=== PATIENT | male | born 1955 | race Caucasian/White ===

== ENCOUNTER 2020-06-05 16:19 | Outpatient (RCR) | payer MEDICARE, SELFPAY ==
[2014-04-11 14:33] VITALS: BMI 39.7
[2020-06-05] MEDS: COVID-19 VACC, MRNA(PFIZER)/PF 30 MCG/0.3 ML SYRINGE IM (17:23)
[2020-06-26] MEDS: COVID-19 VACC, MRNA(PFIZER)/PF 30 MCG/0.3 ML SYRINGE IM (17:01)
== END 2020-09-02 23:59 ==
LOC: IMMUN 16:19
PROVIDERS: PCP Internal Medicine; Visit Provider Family Medicine
DX: Z23 Encounter for immunization (principal)
CPT/HCPCS: 0001A; 0002A; 91300

== ENCOUNTER 2021-08-09 17:48 | Emergency (ER) | payer BC, SELFPAY ==
[2021-08-09 17:49] VITALS: BP 131/103; PULSE 81; RESP 18; TEMP 37.4; O2SAT 97; BMI 37.3
[2021-08-09 18:31] LABS: Absolute Lymphocyte Count 3.29 X10^3/uL (0.83-4.51); Absolute Neutrophil Count 10.5 X10^3/uL (2.0-7.7); Basophil# 0.03 X10^3/uL; Basophil% 0.2 % (0-1); Eosinophil# 0.12 X10^3/uL; Eosinophils% 0.8 % (0-5); Hematocrit 42.9 % (40-54); Hemoglobin 14.3 g/dL (13.0-16.5); Lymphocyte # 3.29 X10^3/ul (0.83-4.51); Lymphocyte % 21.9 % (19-41); Mean Corp Hgb Conc 33.3 g/dL (32-36); Mean Corpuscular Hgb 29.5 pg (27.0-32.0); Mean Corpuscular Volume 88.6 fL (80-94); Mean Platelet Vol. 10.8 fl (6.2-12.0); Monocyte# 1.08 X10^3/uL; Monocyte% 7.2 % (0-10); NRBC Flagged by Analyzer 0 % (0-5); Neutrophil # 10.45 X10^3/uL (2.7-7.7); Neutrophil % 69.5 % (47-70); Platelet Count 240 K/mm3 (150-450); RBC Distribution Width CV 12.6 % (11.6-14.6); RBC Distribution Width SD 41.1 fl (35.1-43.9); Red Blood Count 4.84 M/mm3 (4.6-6.2)
[2021-08-09 18:39] LABS: Anion Gap 7 (5-15); BUN 18 mg/dL (7-18); BUN/Creat Ratio 17.8 RATIO (10-20); Calcium,Total 9.1 mg/dL (8.5-10.1); Chloride 103 mmol/L (98-107); Creatinine, Serum 1.01 mg/dL (0.70-1.30); EST Glomerular Filtration Rate 79 mL/min (>60); Est Glom Filt Rate - Afr Amer 96 mL/min (>60); Estimated Creatinine Clearance 76.29 ml/min; Glucose 113 mg/dL (74-106); Potassium 4.1 mmol/L (3.5-5.1); Sodium Level 135 mmol/L (136-145)
--- NOTE | 2021-08-09 18:43 | CT_ITS ---
STUDY: CT ABDOMEN AND PELVIS WITH CONTRAST REASON FOR EXAM: Male, 66 years old. PAIN RADIATION DOSAGE (If Supplied By Facility): CTDIvol = ( 24.53 ) mGy, DLP = ( 1766.46 ) mGycm TECHNIQUE: Transaxial images were obtained from the dome of the diaphragm to the symphysis pubis without oral contrast. IV 100mL Isovue-370 was administered. Sagittal and coronal images were reconstructed. Individualized dose optimization techniques were used for this CT. COMPARISON: None. FINDINGS: Right lower lobe calcified granulomas The visualized portions of the heart are within normal limits. Normal liver. Normal gallbladder and extrahepatic biliary system. Granulomatous calcifications in the spleen. Normal pancreas. Normal bilateral adrenal glands. Normal right kidney. Normal left kidney. Normal visualized stomach. Normal small intestine. Mild diverticulosis of the colon. There is inflammation at the proximal sigmoid colon likely due to diverticulitis. No adjacent free air or drainable collection. The appendix is visualized and appears normal. Calcified abdominal aorta. Normal inferior vena cava. Normal retroperitoneum. Normal urinary bladder. Normal abdominal wall. There is a left hip prosthesis in place.. CT/Abdomen/Pelvis W IV Cont ONLY IMPRESSION: Proximal sigmoid diverticulitis. Electronically Signed: Ravi Randall DO at 20:00 EDT Reading Location ID and State: [facility] / [place] Tel [phone], Service support ,
[2021-08-09 18:44] LABS: Mucous, Urine 0 SEEN /hpf (<or=2+); White Blood Cells 0 SEEN /hpf (0-5)
--- NOTE | 2021-08-09 18:44 | EDS_ITS ---
HPI HPI - GI History of Present Illness Chief Complaint: Constipation Narrative Narrative: Patient presents with abdominal pain and bloating. He endorses decreased flatulence. He states he usually has a bowel movement every day. He only had a small bowel movement this morning. He ate 2 pieces of pizza and had a big bowl of food, and has not not had a bowel movement. He complains of abdominal distention and diffuse pain. Past surgical history includes hernia repair. He denies any nausea or vomiting. No fever or chills. No other symptoms. PFSH PFSH Home Medications albuterol sulfate [Ventolin HFA] 1 puff INHALATION Q4H PRN PRN 04/11/14 [History Last Taken 04/11/14 02:00] metformin 1,000 mg PO BIDCM 04/11/14 [History Last Taken 04/11/14 02:00] ciprofloxacin HCl 500 mg PO BID #20 tab 08/09/21 [Rx Last Taken Unknown] glipizide 20 mg PO DAILY 08/09/21 [History Last Taken Unknown] hydrocodone-acetaminophen 1 tab PO Q6H PRN 3 Days #12 tab 08/09/21 [Rx Last Ta armida Unknown] lisinopril 10 mg PO DAILY 08/09/21 [History Last Taken Unknown] metronidazole 500 mg PO TID #30 tab 08/09/21 [Rx Last Taken Unknown] Allergy/AdvReac Type Severity Reaction Status Date / Time Penicillins Allergy Anaphylaxis Verified 08/09/21 17:50 pentolinium Allergy Rash Verified 08/09/21 17:50 Surgical History Hx of hernia repair Social History Smoking Status: Current some day smoker tobacco type: cigarettes ROS ROS ED ROS Narrative Constitutional: No fever, no chills. HEENT: No sore throat. No neck pain. No loss of vision. No rhinorrhea. Cardiovascular: No chest pain. No palpitations. No pedal edema. Respiratory: No cough, no shortness of breath. Abdominal: Diffuse abdominal pain. No nausea. No vomiting. Abdominal bloating and distention. No bowel movement since this morning. Genitourinary: No dysuria. No hematuria. Musculoskeletal: No myalgias. No arthralgias. Neurologic: No headaches. No dizziness. No lightheadedness. Skin: No rash. No change in color. Psychiatric: No depression. No anxiety. EXAM Physical Exam Narrative Exam Narrative: Afebrile. Vital signs noted. HEENT: Normocephalic. Atraumatic. PERRL, EOMI. Neck soft and supple. No point tenderness or step off. Cardiovascular: Regular rate and rhythm. No murmurs, rubs, or gallops appreciated. Respiratory: No tachypnea. Lungs clear to auscultation bilaterally. Gastrointestinal: Abdomen soft, nontender, with normoactive to decreased bowel sounds. No rebound or guarding. Mild tenderness to palpation left lower quadrant. Positive abdominal distention. Neurological: Awake. Alert. Nonfocal, nonlateralizing. Skin: No rash. Normal color. No pallor. Musculoskeletal: No pedal edema. Full range of motion extremities. Const Vital Signs: 08/09/21 17:49 Temperature 99.3 F H Temperature Source Temporal Pulse Rate 81 Respiratory Rate 18 Blood Pressure 131/103 H Blood Pressure Mean 112 Pulse Ox 97 Oxygen Delivery Method Room Air MDM MDM MDM Narrative Medical decision making narrative: Comprehensive work-up was pursued. He has an elevated white count of 15. Electrolyte panel shows sodium of 135 with normal creatinine of 1.0 and a normal BUN of 18. He will be administered morphine. I will obtain CT imaging with IV contrast to look for bowel obstruction. CBC shows elevated white count of 15,000, hemoglobin normal at 14.3, platelet count normal at 240. Sodium slightly low 135, other electrolytes grossly normal with glucose of 113 with a normal anion gap of 7. Urinalysis shows no evidence of infection, no ketones. CT of the abdomen and pelvis with IV contrast shows no evidence of obstruction, but there is proximal sigmoid diverticulitis. This correlates with his left lower quadrant abdominal pain and feeling of obstipation. At this point in time, he is not febrile, and feels improved and would like outpatient therapy. He was given his first doses of Flagyl and ciprofloxacin and he was written a prescription for [place] for the next 3 days. He was told to have a follow-up appointment with his primary care physician in 2 days. He was told of the risk of perforation and abscess development and acknowledges an understanding. He will return with fever, increased pain, new or worsening symptoms. His abdomen remains soft. Disposition is discharged home in stable condition. Lab Data Attestation: I reviewed the patient's lab results. Labs: Laboratory Results - last 24 hr 08/09/21 08/09/21 08/09/21 18:18 18:18 18:37 WBC 15.0 H RBC 4.84 Hgb 14.3 Hct 42.9 MCV 88.6 MCH 29.5 MCHC 33.3 RDW Std Deviation 41.1 RDW Coeff of Pascual 12.6 Plt Count 240 MPV 10.8 Immature Gran % (Auto) 0.400 Neut % (Auto) 69.5 Lymph % (Auto) 21.9 [place] % (Auto) 7.2 Eos % (Auto) 0.8 Baso % (Auto) 0.2 Absolute Neuts (auto) 10.5 H Absolute Lymphs (auto) 3.29 Nucleated RBC % 0 Sodium 135 L Potassium 4.1 Chloride 103 Carbon Dioxide 25.0 Anion Gap 7 BUN 18 Creatinine 1.01 Estim Creat Clear Calc 76.29 Est GFR (MDRD) Af Amer 96 Est GFR (MDRD) Non-Af 79 BUN/Creatinine Ratio 17.8 Glucose 113 H Calcium 9.1 Urine Color Yellow Urine Clarity Clear Urine pH 5.0 Ur Specific [place] 1.015 Urine Protein Negative Urine Glucose (UA) Normal Urine Ketones Negative Urine Occult Blood 10 H Urine Nitrite Negative Urine Bilirubin Negative Urine Urobilinogen Normal Ur Leukocyte Esterase Negative Urine RBC 0-5 SEEN Urine WBC 0 SEEN Ur Squamous Epith Cells 0-5 SEEN Urine Bacteria 1+ Urine Mucus 0 SEEN Radiography Diagnostic Testing: Clinical Impression(s) from Imaging Studies Abdomen/Pelvis CT 08/09/21 18:43 IMPRESSION: Proximal sigmoid diverticulitis. Electronically Signed: Ravi Randall DO at 20:00 EDT Reading Location ID and State: [facility] / [place] Tel [phone], Service support , Discharge Plan Triage Chief Complaint: Constipation ED Provider: Elfego Russell Dx/Rx/DC Orders Clinical Impression: Sigmoid diverticulitis, Obstipation Instructions: ED Diverticulitis Prescriptions: New ciprofloxacin HCl 500 mg tablet 500 mg PO BID Qty: 20 RF: 0 metronidazole 500 mg tablet 500 mg PO TID Qty: 30 RF: 0 hydrocodone-acetaminophen 5-325 mg tablet 1 tab PO Q6H PRN (Reason: pain) 3 Days Qty: 12 RF: 0 No Action metformin 500 MG tablet 1,000 mg PO BIDCM RF: 0 albuterol sulfate [Ventolin HFA] 1 INHALER inhaler 1 puff inhalation Q4H PRN PRN (Reason: Shortness Of Breath) RF: 0 glipizide 10 mg tablet extended release 24hr 20 mg PO DAILY RF: 0 lisinopril 10 mg tablet 10 mg PO DAILY RF: 0 Primary Care Provider: Shiva Camargo Referrals: Shiva Camargo MD [Primary Care Provider] - 2 Days Activity Restrictions/Additional Instructions: You have been diagnosed with sigmoid diverticulitis. Take your antibiotics as directed. You may want to start a stool softener. Have a reevaluation by your primary care physician in 2 to 3 days. Call for an appointment tomorrow and explained to them that you need follow-up from the emergency department visit for diverticulitis. Return with any increased pain, fever, new or worsening symptoms. Disposition Disposition: Home, Self Care
[2021-08-09 18:53] LABS: Color, Urine Yellow (Yellow); Glucose, Dipstick Normal (Normal); Ketone-Dipstick Negative (Negative); Leukocyte Esterase-Dipstick Negative /ul (Negative); Nitrite-Dipstick Negative (Negative); Occult Blood-Urine 10 /ul (Negative); Protein-Dipstick Negative (Negative); Specific Gravity, Urine 1.015 (1.002-1.030); Urine Bilirubin Dipstick Negative (Negative); Urine Clarity Clear (Clear); Urine Urobilinogen Normal (Normal)
[2021-08-09 19:03] LABS: Bacteria 1+ /hpf (None Seen); Red Blood Cells-Urine 0-5 SEEN /hpf (0-5); Squamous Epithelial Cells - UA 0-5 SEEN /hpf (0-5)
[2021-08-09] MEDS: Morphine 4 MG/ML Syringe IV (19:03)
[2021-08-09] MEDS: metroNIDAZOLE 500 MG Tablet PO (20:34)
[2021-08-09] MEDS: Ciprofloxacin 500 MG Tablet PO (20:34)
[2021-08-09] MEDS: HYDROcodone Bitartrate/Apap 5/325 Tablet PO (20:34)
== END 2021-08-09 20:37 | disposition home or self-care (01) ==
PROVIDERS: Emergency Provider Emergency Medicine; PCP Internal Medicine; Visit Provider Emergency Medicine
DX: K57.32 Diverticulitis of large intestine without perforation or abscess without bleeding (principal); K59.00 Constipation, unspecified; F17.210 Nicotine dependence, cigarettes, uncomplicated; Z79.84 Long term (current) use of oral hypoglycemic drugs; Z79.899 Other long term (current) drug therapy
CPT/HCPCS: 74177; 80048; 81001; 85025; 96374; 99284; Q9967; A4216

== ENCOUNTER 2024-01-13 17:46 | Observation (INO) | payer MEDICARE, SELFPAY ==
[2024-01-13 17:47] VITALS: BP 118/72; PULSE 84; RESP 16; TEMP 36.6; O2SAT 100; BMI 35.9
--- NOTE | 2024-01-13 17:50 | ED.RN ---
PT BP WHILE IS 141/77
[2024-01-13 19:46] VITALS: BP 146/88; PULSE 77; RESP 16
--- NOTE | 2024-01-13 19:49 | RAD_ITS ---
STUDY: X-RAY CHEST REASON FOR EXAM: Male, 68 years old. chest pain TECHNIQUE: Single frontal view of the chest. COMPARISON: April 11, 2014 FINDINGS: The lungs are clear and expanded. There is no demonstrated pleural abnormality. Calcified granuloma right lung base and right hilum. Normal size heart. Normal mediastinum and bladimir. Normal visualized pulmonary arteries. Normal visualized aortic arch and descending thoracic aorta. Normal visualized thoracic spine. Normal visualized ribs, clavicles, and shoulders. There is no demonstrated abnormality of the visualized soft tissue structures of the upper abdomen. RAD/Chest 1 View (Portable) IMPRESSION: No acute disease Electronically Signed: Jayden Vega MD at 20:43 EDT ,
--- NOTE | 2024-01-13 19:49 | EKG12_ITS ---
Test Reason : DYSRHYTHMIA Blood Pressure : / mmHG Vent. Rate : 078 BPM Atrial Rate : 078 BPM P-R Int : 142 ms QRS Dur : 076 ms QT Int : 342 ms P-R-T Axes : 046 -44 046 degrees QTc Int : 389 ms Normal sinus rhythm Left axis deviation Abnormal ECG Confirmed by Loco Denney ([id number]), editor index YULI MILIAN ([id number]) on 01/16/2024 11:56:45 AM Referred By: Confirmed By:Loco Denney
[2024-01-13 20:02] LABS: Absolute Lymphocyte Count 3.91 X10^3/uL (0.83-4.51); Basophil# 0.06 X10^3/uL; Basophil% 0.4 % (0-1); Eosinophil# 0.12 X10^3/uL; Eosinophils% 0.9 % (0-5); Hematocrit 47.3 % (40-54); Hemoglobin 16.2 g/dL (13.0-16.5); Lymphocyte # 3.91 X10^3/ul (0.83-4.51); Lymphocyte % 27.8 % (19-41); Mean Corp Hgb Conc 34.2 g/dL (32-36); Mean Corpuscular Hgb 30.2 pg (27.0-32.0); Mean Corpuscular Volume 88.1 fL (80-94); Mean Platelet Vol. 10.9 fl (6.2-12.0); Monocyte# 0.88 X10^3/uL; Monocyte% 6.3 % (0-10); NRBC Flagged by Analyzer 0 % (0-5); Neutrophil # 9.03 X10^3/uL (2.7-7.7); Neutrophil % 64.3 % (47-70); Platelet Count 266 K/mm3 (150-450); RBC Distribution Width CV 12.6 % (11.6-14.6); RBC Distribution Width SD 40.7 fl (35.1-43.9); Red Blood Count 5.37 M/mm3 (4.6-6.2)
[2024-01-13] MEDS: Aspirin 81 MG TAB.CHEW 324 MG PO (20:22)
[2024-01-13 20:23] VITALS: BP 146/88; PULSE 79
[2024-01-13] MEDS: Nitroglycerin SL (ED/IMG/CATH) 0.4 MG TABLET SL (20:23)
[2024-01-13 20:26] LABS: Anion Gap 6 (5-15); BUN 29 mg/dL (7-18); BUN/Creat Ratio 23.6 RATIO (10-20); Calcium,Total 9.5 mg/dL (8.5-10.1); Chloride 101 mmol/L (98-107); Creatinine, Serum 1.23 mg/dL (0.70-1.30); EST Glomerular Filtration Rate 62 mL/min (>60); Est Glom Filt Rate - Afr Amer 76 mL/min (>60); Estimated Creatinine Clearance 74.55 ml/min; Glucose 112 mg/dL (74-106); Potassium 4.3 mmol/L (3.5-5.1); Sodium Level 133 mmol/L (136-145); Troponin-I HS (w/2H Reflex) 5 pg/mL (3.0-78.0)
[2024-01-13 21:00] VITALS: BP 157/84; PULSE 88; RESP 23
--- NOTE | 2024-01-13 21:47 | EDS_ITS ---
HPI History of Present Illness Chief Complaint: Hypotension Detail of Chief Complaint: Orthostatic hypotension. Patient here because of exertional chest pain Informant: patient Onset/Context/Timing Onset: Days (Past 7 to 10 days) Context: Sudden Onset Timing: Intermittent Quality: Pressure Location: Midsternal with radiation to the left side occasionally right Current Severity: Mild Maximum Severity: Severe Worsened by: Activity i.e. walking presently required more activity 10 days ago Relieved by: Rest Associated Symptoms Associated Symptoms: Slight dyspnea Narrative Narrative: patient is a 68-year-old male. He has a history of dyslipidemia, hypertension and diabetes for approximately 8 to 10 years. He also has history of GERD. This is different than his GERD. This pain is described as a pressure sensation mid chest that radiates to the left side predominantly. It has radiated to the right side. This occurs with activity and resolves with rest. He saw his doctor. Apparently there was concern for orthostatic hypotension. He does admit to getting dizzy when he has the chest pressure. He denies black or maroon-colored stool. [place] history of hiatal hernia or peptic ulcer disease. He denies leg pain, swelling or discoloration. He denies symptoms of claudication. He denies orthopnea or PND. He was a smoker of 1.5 packs/day for 40 years. He quit approximately 5 years ago. No family member with coronary disease at a young age. There is history of cardiovascular disease, however. Prior similar symptoms: No Recent Illness/Hospitalization: No [facility] Medical History (Updated 01/13/24 @ 22:[address] Jony Patel MD) Former tobacco use Contact dermatitis and eczema due to oils and greases GERD (gastroesophageal reflux disease) Asthma Dyslipidemia HTN (hypertension) Diabetes Obesity (BMI 30-39.9) Home Medications ?Medication ?Instructions ?Recorded ?Last Taken ?Type albuterol sulfate 90 mcg/actuation 1 puff inhalation Q4H PRN PRN 04/11/14 04/11/14 02:00 History aerosol inhaler (Ventolin HFA) Shortness Of Breath metformin 500 mg tablet 1,000 mg PO BIDCM 04/11/14 04/11/14 02:00 History glipizide 10 mg tablet, extended 20 mg PO DAILY 08/09/21 Unknown History release 24 hr lisinopril 10 mg tablet 20 mg PO DAILY 08/09/21 Unknown History naproxen 500 mg tablet,delayed 500 mg PO DAILY 01/13/24 Unknown History release (EC-Naprosyn) Allergy/AdvReac Type Severity Reaction Status Date / Time Penicillins Allergy Anaphylaxis Verified 01/13/24 17:49 pentolinium Allergy Rash Verified 01/13/24 17:49 Surgical History Hx of hernia repair Social History (Updated 01/13/24 @ 22:[address] Coby Fraser MD) household members: spouse Smoking Status: Former smoker how long ago did patient quit smoking: Quit ~ 5 yrs prior, smoked 1.5 ppd x 40 yrs until quit. ROS ROS ED Constitutional Constitutional ED: Denies chills, fever(s) or subjective Eyes Eyes: Denies blurry vision or change in vision ENT ENT ED: Denies ear pain or rhinorrhea Cardiovascular Cardiovascular: Reports chest pain; Denies orthopnea, palpitations, paroxysmal nocturnal dyspnea or racing heartbeat Respiratory/Chest Respiratory/Chest: Reports dyspnea; Denies cough, dyspnea on exertion, orthopnea or paroxysmal nocturnal dyspnea Gastrointestinal Gastrointestinal: Denies abdominal pain, constipation, melena, nausea or vomiting Genitourinary Genitourinary ED: Denies dysuria, hematuria or urinary frequency Musculoskeletal Musculoskeletal: Denies back pain or neck pain Integumentary Denies rash Hematologic/Lymphatic Hematologic/Lymphatic: Reports systems reviewed and no addt'l complaints, except as documented EXAM Physical Exam Const Vital Signs: 01/13/24 17:47 01/13/24 19:46 01/13/24 20:01 Temperature 98 F Temperature Source Oral Pulse Rate 84 77 Respiratory Rate 16 16 Blood Pressure 118/72 146/88 H Blood Pressure Mean 87 107 Pulse Ox 100 Oxygen Delivery Method Room Air Room Air 01/13/24 20:23 01/13/24 21:00 Temperature Temperature Source Pulse Rate 79 88 Respiratory Rate 23 H Blood Pressure 146/88 H 157/84 H Blood Pressure Mean 108 Pulse Ox Oxygen Delivery Method Positive well nourished and well developed Constitutional Narrative: BMI is 35.9. General Appearance ED: well developed and NAD; Negative for pallor HEENT Reports moist mucous membranes HEENT Narrative: Head is atraumatic normocephalic. Ears normal. Nares patent. Eyes PERRL and EOMs intact bilaterally General Eye ED: Negative for pale conjunctiva or scleral icterus Neck no lymphadenopathy, supple and no JVD Chest Wall inspection of chest normal and palpation of chest normal Resp normal respiratory effort and clear to auscultation bilaterally Cardio regular rate, regular rhythm, S1 normal heart sound, S2 normal heart sound and no murmurs GI normal to inspection, nondistended, normoactive bowel sounds, non-tender, non-d istended and no masses; Negative for hepatosplenomegaly Back/Spine no CVA tenderness Extremity normal to inspection Extremity Narrative: Patient has palpable DP and PT pulse. Patient has hair on his toes. Neuro oriented x3, CN's II-XII intact bilaterally and no sensory deficits noted Sensorium / Orientation: alert Motor Exam: strength 5/5 throughout Psych mental status grossly normal Skin no rashes or lesions noted, no wounds and skin turgor normal General Skin Exam: elasticity normal; Negative for jaundice or pallor MDM MDM MDM Narrative Medical decision making narrative: Frontal diagnosis is cardiac versus noncardiac. Noncardiac would include GERD, esophageal spasm, possible pulmonary. My concern is patient has multiple risk factor coronary disease and is having exertional pain that goes away with rest. Per nate criteria he has classic angina. Lab Data Attestation: I reviewed the patient's lab results. Lab results narrative: White count is slightly mid 14,000. There is no shift. Basic metabolic panel is remarkable slight elevation of glucose otherwise unremarkable. First troponin is normal at 5. Labs: Laboratory Results - last 24 hr 01/13/24 01/13/24 19:42 22:14 WBC 14.0 H RBC 5.37 Hgb 16.2 Hct 47.3 MCV 88.1 MCH 30.2 MCHC 34.2 RDW Std Deviation 40.7 RDW Coeff of [place]ascual 12.6 Plt Count 266 MPV 10.9 Immature Gran % (Auto) 0.300 Neut % (Auto) 64.3 Lymph % (Auto) 27.8 [place] % (Auto) 6.3 Eos % (Auto) 0.9 Baso % (Auto) 0.4 Absolute Neuts (auto) 9.0 H Absolute Lymphs (auto) 3.91 Nucleated RBC % 0 Sodium 133 L Potassium 4.3 Chloride 101 Carbon Dioxide 26.0 Anion Gap 6 BUN 29 H Creatinine 1.23 Estim Creat Clear Calc 74.55 Est GFR (MDRD) Af Amer 76 Est GFR (MDRD) Non-Af 62 BUN/Creatinine Ratio 23.6 H Glucose 112 H Calcium 9.5 Troponin I High Sens 5 5 Radiography Chest X-Ray - ED: 1 View and Read by ED Physician (Normal cardiac silhouette and size. Minimal chronic pulmonary changes. [place] is normal. Osseous structures unremarkable.) Diagnostic Testing: Clinical Impression(s) from Imaging Studies Chest X-Ray 01/13/24 19:49 IMPRESSION: No acute disease Electronically Signed: Jayden Vega MD at 20:43 EDT , EKG Initial EKG: Attestation: I personally reviewed and interpreted this EKG as follows: Interpretation: Sinus Rhythm (Rate is 78. [place] to the left. [place] interval is 142 ms. History 76 ms. QT duration 342 ms. There is no ischemic changes noted.) Differential Diagnosis Chest pain/SOB: pulmonary embolism Reason(s) PE less likely: Positive for Well's <3, not tachycardic and not hypoxic, pneumothorax Reason(s) pneumothorax less likely: Positive for bilateral breath sounds and COMPLAINT COORDINATOR withhout PTX, aortic dissection Reason(s) Aortic dissection less likely:: Positive for normal vascular exam, normal neurological exam, no widened mediastinum on CXR, pain not sudden onset, no ripping/tearing pain, no pain to back and blood pressure appropriate in ED, CHF Reason(s) CHF less likely: Positive for no significant peripheral edema, no orthopnea and no evidence of fluid overload on CXR and COPD Reason(s) COPD less likely: Positive for no significant wheezing on exam, no tachypnea, no conversational dyspnea and normal air movement noted on auscultation on lungs Management Discussion w/another healthcare provider: Hospitalist (Patient opts to PCU.) Discharge Plan Triage Chief Complaint: Hypotension ED Provider: Jony Patel Dx/Rx/DC Orders Clinical Impression: Exertional chest pain, History of hypertension, History of diabetes mellitus, Dyslipidemia Prescriptions: No Action metformin 500 MG tablet 1,000 mg PO BIDCM Patient Comments: BLOOD SUGAR albuterol sulfate [Ventolin HFA] 1 INHALER inhaler 1 puff inhalation Q4H PRN PRN (Reason: Shortness Of Breath) Patient Comments: BREATHING glipizide 10 mg tablet extended release 24hr 20 mg PO DAILY lisinopril 10 mg tablet 20 mg PO DAILY naproxen [EC-Naprosyn] 500 mg tablet,delayed release (DR/EC) 500 mg PO DAILY Primary Care Provider: Shiva Camargo Referrals: Shiva Camargo MD [Primary Care Provider] - Print Language: Kenyan Disposition Disposition: Acute Care Hospital [facility]
[2024-01-13 21:57] LABS: Reflex Troponin-HS? (from REC) Y
[2024-01-13 22:39] LABS: Troponin-I HS 5 pg/mL (3.0-78.0)
--- NOTE | 2024-01-13 22:49 | PCM.HP.STD ---
HPI - General General Date of Admission: 01/13/24 Date of Service: 01/13/24 Chief Complaint: Chest pain, dyspnea, dizziness, exertional, intermittent headache, elevated blood pressure. HPI Narrative The patient is a 68 y/o M w/ PMHx: Former tobacco use, Obesity, HTN, HLD, Asthma, GERD, Diabetes mellitus type II who presents to the [facility] ED on 01/13/24 with history of exertional chest discomfort with initial concerns for elevated blood pressure above his normal range both intermittently over the last 7 to 10 days describing the chest discomfort as a pressure-like sensation midsternal with radiation to the left side and occasionally also the right side of the chest more prominent when he is attempting to be more active and improved with rest with associated mild dyspnea with dizziness when he is having the chest discomfort prompting ED evaluation to be cautious. In the ED patient eventually noted to be chest pain-free however he is at rest and not active. He has had also intermittent diffuse throbbing 3-4 of 10 in severity headache with no sound or light sensitivity that seems to come on also when he is having discomfort. He also reports a vague history of intermittent left very focal abdominal discomfort with alternating diarrhea and constipation with concern that he has IBS but is not talk to or discussed any of these items with his primary care physician which was urged. In the ED he denies any current chest discomfort. Workup in the ED included T98, heart rate 84, BP 118/72, respiratory rate 16, 100% on room air with most recent repeat vitals heart rate 88, BP 157/84, respiratory rate 23, CBC with WBC 14, hemoglobin 16.2, platelet 266 with left shift, BMP with sodium 133, BUN/creatinine 29/1.23, glucose 112, troponin 5 with repeat delta 5, chest x-ray with no acute cardiopulmonary findings, EKG with sinus rhythm with no acute evidence of ischemia. In the ED patient administered full-strength aspirin therapy and sublingual nitroglycerin. [facility] Medical History IBS (irritable bowel syndrome) Former tobacco use Contact dermatitis and eczema due to oils and greases GERD (gastroesophageal reflux disease) Asthma Dyslipidemia HTN (hypertension) Diabetes Obesity (BMI 30-39.9) Home Medications ?Medication ?Instructions ?Recorded ?Last Taken ?Type albuterol sulfate 90 mcg/actuation 1 puff inhalation Q4H PRN PRN 04/11/14 04/11/14 02:00 History aerosol inhaler (Ventolin HFA) Shortness Of Breath metformin 500 mg tablet 1,000 mg PO BIDCM 04/11/14 04/11/14 02:00 History glipizide 10 mg tablet, extended 20 mg PO DAILY 08/09/21 Unknown History release 24 hr lisinopril 10 mg tablet 20 mg PO DAILY 08/09/21 Unknown History naproxen 500 mg tablet,delayed 500 mg PO DAILY 01/13/24 Unknown History release (EC-Naprosyn) Allergy/AdvReac Type Severity Reaction Status Date / Time Penicillins Allergy Anaphylaxis Verified 01/13/24 17:49 pentolinium Allergy Rash Verified 01/13/24 17:49 Family History Mother CVA (cerebral vascular accident) Hypertension Diabetes Father Diabetes Leukemia Surgical History History of total left hip replacement History of umbilical hernia repair Social History (Updated 01/14/24 @ 00:[address] Coby Fraser MD) household members: spouse Smoking Status: Former smoker how long ago did patient quit smoking: Quit ~ 5 yrs prior, smoked 1.5 ppd x 40 yrs until quit. alcohol intake: former year quit: 2018 details: Would occasional drink heavier but not daily, denies EtOH abuse history. substance use type: does not use ROS ROS Narrative Admission Review of Systems: CONSTITUTIONAL: No weight loss, fever, chills, + weakness or fatigue. HEENT: + Intermittent lightheadedness/dizziness, headache. Eyes: No visual loss, blurred vision, double vision or yellow sclerae. Ears, Nose, Throat: No hearing loss, sneezing, congestion, runny nose or sore throat. SKIN: No rash or itching, lesions, wounds. CARDIOVASCULAR: + Chest pain. No palpitations, edema, orthopnea, syncopal events. RESPIRATORY: + Intermittent dyspnea. No cough or sputum, wheezing, hemoptysis. GASTROINTESTINAL: + Intermittent abdominal discomfort, diarrhea/constipation rotating. No anorexia, nausea, vomiting, melena, BRBPR. GENITOURINARY: No dysuria, frequency, urgency or retention. NEUROLOGICAL: + Intermittent lightheadedness/dizziness, headache. No syncope, paralysis, ataxia, numbness or tingling in the extremities, focal weakness, change in bowel or bladder control, seizure. MUSCULOSKELETAL: + muscle, back pain, joint pain or stiffness. HEMATOLOGIC: No anemia, bleeding or bruising. LYMPHATICS: No enlarged nodes. No history of splenectomy. PSYCHIATRIC: No history of depression or anxiety. ENDOCRINOLOGIC: No reports of sweating, cold or heat intolerance. No polyuria or polydipsia. ALLERGIES: + History of anaphylaxis. Vital Signs Vital Signs Vital Signs: 01/13/24 17:47 01/13/24 19:46 01/13/24 20:01 Temperature 98 F Temperature Source Oral Pulse Rate 84 77 Respiratory Rate 16 16 Blood Pressure 118/72 146/88 H Blood Pressure Mean 87 107 Pulse Ox 100 Oxygen Delivery Method Room Air Room Air 01/13/24 20:23 01/13/24 21:00 Temperature Temperature Source Pulse Rate 79 88 Respiratory Rate 23 H Blood Pressure 146/88 H 157/84 H Blood Pressure Mean 108 Pulse Ox Oxygen Delivery Method Weight Weight: 250 lb 4.8 oz Body Mass Index (BMI) 35.9 Physical Exam Narrative Physical Examination: General: Awake, alert, oriented x 3 and cooperative, laying in the ED bed, fatigued, denies any current chest pain. Skin: Normal color, normal turgor, no icterus, no cyanosis. HEENT: AT/NC, EOMI, PERRLA, MMM, notable facial hair, difficulty assessing carotid bruit and JVD given very thickened meade. Lungs: CTA bilaterally, moderate effort, mild decrease BL bases, no rales, ronchi or wheezing. Heart: Regular rate and rhythm; no gallop, rub audible. Abdomen: Soft, obese, NTTP and even patient attempted to palpate his left lower quadrant where he notes occasionally he has the pain but he was unable to elicit it at this time, ND, mildly hyperactive BS, no appreciated HSM. Extremities: No cyanosis, clubbing, or edema. Neurological: Patient awake, alert, oriented as noted, cognitive function intact; pupils equally reactive to light and accommodation, cranial nerves grossly normal, moving all 4 extremities, no focal deficits, strength mildly to moderately globally decree secondary to acute complaints and fatigue. Psychiatric: Affect appears fatigued otherwise normal, no acute evidence of depressive or anxiety feelings. Results Lab / Micro Data 01/13/24 19:42 01/13/24 19:42 Labs: Laboratory Results - last 24 hr 01/13/24 19:42: WBC 14.0 H, RBC 5.37, Hgb 16.2, Hct 47.3, MCV 88.1, MCH 30.2, MCHC 34.2, RDW Std Deviation 40.7, RDW Coeff of Pascual 12.6, Plt Count 266, MPV 10.9, Immature Gran % (Auto) 0.300, Neut % (Auto) 64.3, Lymph % (Auto) 27.8, [place] % (Auto) 6.3, Eos % (Auto) 0.9, Baso % (Auto) 0.4, Absolute Neuts (auto) 9.0 H, Absolute Lymphs (auto) 3.91, Nucleated RBC % 0, Sodium 133 L, Potassium 4.3, Chloride 101, Carbon Dioxide 26.0, Anion Gap 6, BUN 29 H, Creatinine 1.23, Estim Creat Clear Calc 74.55, Est GFR (MDRD) Af Amer 76, Est GFR (MDRD) Non-Af 62, BUN/Creatinine Ratio 23.6 H, Glucose 112 H, Calcium 9.5, Troponin I High Sens 5 01/13/24 22:14: Troponin I High Sens 5 Imaging Radiology Impression Chest X-Ray 01/13/24 19:49 IMPRESSION: No acute disease Electronically Signed: Jayden Vega MD at 20:43 EDT Reading Location ID and State: [facility] / [place] Tel , Service support , Assessment & Plan Assessment/Plan (1) Exertional chest pain: PLAN: Plan The patient is a 68 y/o M w/ PMHx: Former tobacco use, Obesity, HTN, HLD, Asthma, GERD, Diabetes mellitus type II who presents to the [facility] ED on 01/13/24 with history of exertional chest discomfort with initial concerns for low blood pressure both intermittently over the last 7 to 10 days describing the chest discomfort as a pressure-like sensation midsternal with radiation to the left side and occasionally also the right side of the chest more prominent when he is attempting to be more active and improved with rest with associated mild dyspnea with dizziness when he is having the chest discomfort prompting ED evaluation to be cautious. #1. Chest Pain: EKG in ED with sinus rhythm with no acute evidence of ischemia, CXR w/ no acute cardiopulmonary finding, initial trop 5 with repeat delta of also 5. Will admit to PCU, place on a monitored bed to assure no acute myocardial infarction with serial cardiac enzymes and EKGs. If repeat serial cardiac enzymes and EKGs remain unremarkable will pursue a.m. cardiac stress testing. FLP in AM. Mag requested. ASA, NG. #2. Hypertension: BP in the ED not severely elevated as patient reported intermittent notably high blood pressures. Will continue home regimen including lisinopril and if noted periods of marked elevation low threshold to alter his regimen, PRN hydralazine. #3. Hyperlipidemia: Not on regimen per current list, no allergy listed, FLP in AM. #4. Chronic asthma: Per list not on any regimen, will maintain on PRN albuterol. #5. Obesity: Weight loss and lifestyle changes encouraged. #6. Former tobacco use: Encourage continued tobacco cessation. #7. GERD: Per current list not on chronic regimen, will have as needed Mylanta and will place on Protonix in case this is a component of his presentation although low suspicion. #8. Diabetes mellitus type II: Hold oral home regimen, ADA diet until n.p.o. status for stress testing, accu checks w/ ISS. #9. DVT prophylaxis: Lovenox. Charges/Coding Visit Charges Inpatient E&M: 58047 Init Hosp L2
[2024-01-13 22:59] VITALS: BP 120/54; PULSE 76; RESP 16; TEMP 36.8; O2SAT 97
[2024-01-13 23:13] LABS: Magnesium 1.9 mg/dL (1.6-2.6)
[2024-01-13 23:49] VITALS: BMI 35.6
[2024-01-13 23:54] VITALS: BP 160/76; PULSE 72; RESP 16; TEMP 36.1; O2SAT 97
[2024-01-14] MEDS: Pantoprazole Sodium 20 MG Tablet PO ×2 (00:10→10:19)
[2024-01-14 02:36] LABS: Troponin-I HS 4 pg/mL (3.0-78.0)
[2024-01-14 03:27] VITALS: BMI 35.6
[2024-01-14 05:39] VITALS: O2SAT 97
[2024-01-14 06:18] VITALS: BP 145/79; PULSE 73; RESP 16; TEMP 36.3; O2SAT 99
[2024-01-14] MEDS: Aspirin E.C. 81 MG Tablet PO (06:20)
[2024-01-14] MEDS: Lisinopril 20 MG Tablet PO (06:20)
[2024-01-14 07:05] LABS: Bedside Glucose 137 mg/dL (74-106)
[2024-01-14 07:22] LABS: Absolute Lymphocyte Count 3.25 X10^3/uL (0.83-4.51); Absolute Neutrophil Count 6.2 X10^3/uL (2.0-7.7); Basophil# 0.04 X10^3/uL; Basophil% 0.4 % (0-1); Eosinophil# 0.15 X10^3/uL; Eosinophils% 1.4 % (0-5); Hematocrit 44.2 % (40-54); Hemoglobin 14.3 g/dL (13.0-16.5); Lymphocyte # 3.25 X10^3/ul (0.83-4.51); Lymphocyte % 31.1 % (19-41); Mean Corp Hgb Conc 32.4 g/dL (32-36); Mean Corpuscular Hgb 28.8 pg (27.0-32.0); Mean Corpuscular Volume 88.9 fL (80-94); Monocyte# 0.81 X10^3/uL; Monocyte% 7.8 % (0-10); NRBC Flagged by Analyzer 0 % (0-5); Neutrophil # 6.16 X10^3/uL (2.7-7.7); Platelet Count 222 K/mm3 (150-450); RBC Distribution Width CV 12.4 % (11.6-14.6); RBC Distribution Width SD 40.5 fl (35.1-43.9); Red Blood Count 4.97 M/mm3 (4.6-6.2); White Blood Count 10.4 K/mm3 (4.4-11.0)
[2024-01-14 07:47] LABS: ALB/GLOB Ratio 1.1 RATIO (0.9-2.4); AST(SGOT) 21 U/L (15-37); Alanine Aminotransfer ALT/SGPT 24 U/L (16-61); Albumin, Serum 3.8 g/dL (3.2-5.0); Alkaline Phosphatase 65 U/L (45-117); Anion Gap 7 (5-15); BUN 27 mg/dL (7-18); BUN/Creat Ratio 24.3 RATIO (10-20); Calcium,Total 9.1 mg/dL (8.5-10.1); Chloride 103 mmol/L (98-107); Cholesterol 198 mg/dL (200); Creatinine, Serum 1.11 mg/dL (0.70-1.30); EST Glomerular Filtration Rate 70 mL/min (>60); Est Glom Filt Rate - Afr Amer 85 mL/min (>60); Estimated Creatinine Clearance 82.22 ml/min; Globulin 3.6 g/dL (2.2-4.2); Glucose 140 mg/dL (74-106); High Density Lipoprotein 34 mg/dL; Potassium 4.6 mmol/L (3.5-5.1); Protein, Total 7.4 g/dL (6.4-8.2); Sodium Level 133 mmol/L (136-145); Triglycerides 320 mg/dL; Very Low Density Lipoprotein 64 mg/dL (5-40)
[2024-01-14] MEDS: FLU VACCINE **HIGH DOSE** TV 24-25 180 MCG/0.5 ML SYRINGE IM (10:20)
--- NOTE | 2024-01-14 10:27 | DCINST_ITS ---
Discharge Instructions Diet Discharge Diet: 1800 Calorie Control Diet Activity Discharge Activity: Return to Normal Activity Weight Bearing Status: Full weight bearing Follow Up Care Test Results: Test results from this visit will be discussed in further detail at your follow- up appointment, if applicable. Discharge Plan Admission Admit Date/Time: 01/13/24 22:56 Primary Reason for Your Visit: chest pain Attending Provider: Jim Najera Primary Care Provider: Shiva Camargo Consulting Providers: Coby Fraser Discharge Orders/Prescriptions Prescriptions: Continued metformin 500 MG tablet 1,000 mg PO BIDCM Patient Comments: BLOOD SUGAR albuterol sulfate [Ventolin HFA] 1 INHALER inhaler 1 puff inhalation Q4H PRN PRN (Reason: Shortness Of Breath) Patient Comments: BREATHING glipizide 10 mg tablet extended release 24hr 20 mg PO DAILY lisinopril 10 mg tablet 20 mg PO DAILY naproxen [EC-Naprosyn] 500 mg tablet,delayed release (DR/EC) 500 mg PO DAILY Referrals / Follow Up: Shiva Camargo MD [Primary Care Provider] - Disposition Disposition (needs filled in before D/C Order can be placed): Home, Self Care
--- NOTE | 2024-01-14 10:36 | PCM.DC.SUM ---
Providers Date of Admission: 01/13/24 Date of Discharge: 01/14/24 Primary Care Physician: Dr. Shiva Camargo MD Reason For Visit: CHEST PAIN Diagnosis Discharge Diagnosis (1) Exertional chest pain: Status: Acute Code(s): R07.9 - Chest pain, unspecified Plan 1. Musculoskeletal chest pain #2 small loculated pericardial effusion #3 type 2 diabetes #4 essential hypertension Medications at Discharge Home Medications albuterol sulfate 90 mcg/actuation aerosol inhaler (Ventolin HFA) 1 puff inhalation Q4H PRN PRN Shortness Of Breath 04/11/14 metformin 500 mg tablet 1,000 mg PO BIDCM 04/11/14 glipizide 10 mg tablet, extended release 24 hr 20 mg PO DAILY 08/09/21 lisinopril 10 mg tablet 20 mg PO DAILY 08/09/21 naproxen 500 mg tablet,delayed release (EC-Naprosyn) 500 mg PO DAILY 01/13/24 Hospital Course Operations None Procedures Nuclear stress test Summary of Care Provided Minutes Spent on Discharge: 31 Hospital Course: This 68-year-old white male was seen in the emergency room at [facility] with complaints of exertional chest pain and chest pain while at rest along with lightheadedness. Patient denied any radiation of the pain up into his neck or down his arms. Workup in the ER included a troponin which was unremarkable, EKG did not show any acute ischemic changes, and chest x-ray showed no acute disease. Patient was placed in observation status on PCU, serial cardiac enzymes were unremarkable. Patient underwent a resting nuclear chemical stress test which was negative for ischemia. I discussed further testing with the patient and I ordered a chest CT on the patient with contrast, it was negative except for a small loculated pericardial effusion 1.5 cm in diameter. I did not feel this was causing patient's chest pain, I felt it was most likely that the patient had musculoskeletal chest discomfort. I contacted the patient's PCP covering physician and relayed a message to that physician to have the patient follow-up with Dr. Camargo who is his PCP. This follow-up should include an echocardiogram, the abnormality could be a pericardial cyst. I also left a text message on Dr. Shiva Camargo's phone number. On 01/14/2024, patient was seen and examined: On examination he appeared in good health and spirits. Vital signs as documented. Skin warm and dry and without overt rashes. Neck without JVD, neck was supple, trachea midline, thyroid was normal. Lungs clear bilaterally, normal air movement was noted. Heart exam notable for regular rhythm, normal sounds and absence of murmurs, rubs or gallops. Abdomen unremarkable and without evidence of organomegaly, masses, or abdominal aortic enlargement. Bowel sounds are present, abdomen is not distended. Extremities nonedematous, no cyanosis was noted, no clubbing was noted. Neuro: Cranial nerves II through XII are grossly intact, no focal motor deficits were noted, sensation to light touch and pinprick intact, motor exam 5/5 throughout. Psych: Patient is alert and oriented x3, he does not appear anxious or depressed, he does not appear agitated. On 01/14/2024, patient was discharged home in stable condition-as a further note, due to his complaints of lightheadedness I recommended the patient cut his blood pressure medication down to lisinopril 10 mg daily and monitor his blood pressure at home to maintain a systolic reading between 130 and 140. Weight / BMI Weight Weight: 112.5 kg Body Mass Index (BMI) 35.6 ABG / Lab / Microbiology Data 01/14/24 06:50 01/14/24 06:50 Laboratory: Laboratory Results - last 24 hr 01/13/24 19:42: WBC 14.0 H, RBC 5.37, Hgb 16.2, Hct 47.3, MCV 88.1, MCH 30.2, MCHC 34.2, RDW Std Deviation 40.7, RDW Coeff of Pascual 12.6, Plt Count 266, MPV 10.9, Immature Gran % (Auto) 0.300, Neut % (Auto) 64.3, Lymph % (Auto) 27.8, [place] % (Auto) 6.3, Eos % (Auto) 0.9, Baso % (Auto) 0.4, Absolute Neuts (auto) 9.0 H, Absolute Lymphs (auto) 3.91, Nucleated RBC % 0, Sodium 133 L, Potassium 4.3, Chloride 101, Carbon Dioxide 26.0, Anion Gap 6, BUN 29 H, Creatinine 1.23, Estim Creat Clear Calc 74.55, Est GFR (MDRD) Af Amer 76, Est GFR (MDRD) Non-Af 62, BUN/Creatinine Ratio 23.6 H, Glucose 112 H, Calcium 9.5, Troponin I High Sens 5 01/13/24 22:14: Magnesium 1.9, Troponin I High Sens 5 01/14/24 02:10: Troponin I High Sens 4 01/14/24 06:23: POC Glucose 137 H 01/14/24 06:50: WBC 10.4, RBC 4.97, Hgb 14.3, Hct 44.2, MCV 88.9, MCH 28.8, MCHC 32.4 D, RDW Std Deviation 40.5, RDW Coeff of Pascual 12.4, Plt Count 222, MPV 11.0, Immature Gran % (Auto) 0.300, Neut % (Auto) 59.0, Lymph % (Auto) 31.1, [place] % (Auto) 7.8, Eos % (Auto) 1.4, Baso % (Auto) 0.4, Absolute Neuts (auto) 6.2, Absolute Lymphs (auto) 3.25, Nucleated RBC % 0, Sodium 133 L, Potassium 4.6, Chloride 103, Carbon Dioxide 24.0, Anion Gap 7, BUN 27 H, Creatinine 1.11, Estim Creat Clear Calc 82.22, Est GFR (MDRD) Af Amer 85, Est GFR (MDRD) Non-Af 70, BUN/Creatinine Ratio 24.3 H, Glucose 140 H, Calcium 9.1, Total Bilirubin 1.60 H, AST 21, ALT 24, Alkaline Phosphatase 65, Total Protein 7.4, Albumin 3.8, Globulin 3.6, Albumin/Globulin Ratio 1.1, Triglycerides 320 H, Cholesterol 198, LDL Cholesterol 100, VLDL Cholesterol 64 H, HDL Cholesterol 34 L Radiography Diagnostic Testing: Radiology Impression Chest X-Ray 01/13/24 19:49 IMPRESSION: No acute disease Electronically Signed: Jayden Vega MD at 20:43 EDT , D/C Instructions Discharge Diet: 1800 Calorie Control Diet Weight Bearing Status: Full weight bearing Meaningful Use Info Meaningful Use Meaningful Use Diagnoses (Choose all that apply): None applicable Ischemic Stroke Statin Dosing Therapy Reference: STATIN DOSE THERAPY REFERENCE: * Patients > 75 years receive moderate or high dose statin therapy. * Patients 75 years or YOUNGER should receive HIGH intensity statin dose unless contraindicated. You will be required to document reason for non-treatment if statin daily dose does not meet guidelines. HIGH DOSE STATIN THERAPY DAILY Atorvastatin > than or = to 40 mg Rosuvastatin > than or = to 20 mg Amlodipine + Atorvastatin > than or = to 2.5/40 mg Ezetimibe + Simvastatin 10/80 mg Simvastatin 80mg Discharge Plan Admission Admit Date/Time: 01/13/24 22:56 Primary Reason for Your Visit: chest pain Attending Provider: Jim Najera Primary Care Provider: Shiva Camargo Consulting Providers: Coby Fraser Discharge Orders/Prescriptions Prescriptions: Continued metformin 500 MG tablet 1,000 mg PO BIDCM Patient Comments: BLOOD SUGAR albuterol sulfate [Ventolin HFA] 1 INHALER inhaler 1 puff inhalation Q4H PRN PRN (Reason: Shortness Of Breath) Patient Comments: BREATHING glipizide 10 mg tablet extended release 24hr 20 mg PO DAILY lisinopril 10 mg tablet 20 mg PO DAILY naproxen [EC-Naprosyn] 500 mg tablet,delayed release (DR/EC) 500 mg PO DAILY Referrals / Follow Up: Shiva Camargo MD [Primary Care Provider] - Disposition Disposition (needs filled in before D/C Order can be placed): Home, Self Care Charges/Coding Visit Charges Inpatient E&M: 92040 Disch Hosp >30min
--- NOTE | 2024-01-14 10:55 | CT_ITS ---
EXAM: CT ANGIOGRAPHY CHEST WITH INTRAVENOUS CONTRAST CLINICAL INDICATION: Chest pain. TECHNIQUE: Helically acquired angiography images were obtained of the chest with intravenous contrast. This CT exam was performed using one or more of the following dose reduction techniques: automated exposure control, adjustment of the mA and/or kV according to patient size, and/or use of iterative reconstruction technique. MIP reconstructed images were created and reviewed. CONTRAST: IV 100mL [id number]-370 RADIATION DOSE: CTDIvol = 12.66 mGy, DLP = 553.31 mGy-cm COMPARISON: No relevant prior studies available. FINDINGS: PULMONARY ARTERIES: Unremarkable. Normal in caliber. No evidence of pulmonary embolism. AORTA: Unremarkable. Normal in caliber. No evidence of dissection. GREAT VESSELS OF AORTIC ARCH: Unremarkable. Normal in caliber. No evidence of dissection. LUNGS AND PLEURAL SPACES: Calcified granulomas in the right lung base. No mass. No pleural effusion or thickening. No pneumothorax. HEART: 1.3 cm loculated anterior midline pericardial effusion. Normal cardiac size. No coronary artery calcifications. Heart size is normal. MEDIASTINUM: Unremarkable. No mediastinal or hilar adenopathy. Esophagus is unremarkable. No hiatal hernia. THYROID: Unremarkable. No thyroid lesions. BONES/JOINTS: Unremarkable. No suspicious lytic or blastic abnormality. CT/Chest W/WO Contrast IMPRESSION: 1. No CTA evidence of pulmonary thromboemboli, thoracic aortic aneurysm or dissection. 2. No CT evidence of pneumonia or acute chest abnormality. 3. 1.3 cm thick loculated anterior midline pericardial effusion. Electronically Signed: Elfego Hanson MD at 12:51 EDT ,
[2024-01-14 12:23] VITALS: BP 123/69; PULSE 78; RESP 16; TEMP 36.7; O2SAT 97
[2024-01-14 13:44] VITALS: O2SAT 95
--- NOTE | 2024-01-14 14:50 | PCM.DC.SUM ---
Providers Date of Admission: 01/13/24 Date of Discharge: 01/14/24 Primary Care Physician: Dr. Shiva Camargo MD Reason For Visit: CHEST PAIN Diagnosis Discharge Diagnosis (1) Exertional chest pain: Status: Acute Code(s): R07.9 - Chest pain, unspecified Medications at Discharge Home Medications albuterol sulfate 90 mcg/actuation aerosol inhaler (Ventolin HFA) 1 puff inhalation Q4H PRN PRN Shortness Of Breath 04/11/14 metformin 500 mg tablet 1,000 mg PO BIDCM 04/11/14 glipizide 10 mg tablet, extended release 24 hr 20 mg PO DAILY 08/09/21 lisinopril 10 mg tablet 20 mg PO DAILY 08/09/21 naproxen 500 mg tablet,delayed release (EC-Naprosyn) 500 mg PO DAILY 01/13/24 Weight / BMI Weight Weight: 112.5 kg Body Mass Index (BMI) 35.6 ABG / Lab / Microbiology Data 01/14/24 06:50 01/14/24 06:50 Laboratory: Laboratory Results - last 24 hr 01/13/24 19:42: WBC 14.0 H, RBC 5.37, Hgb 16.2, Hct 47.3, MCV 88.1, MCH 30.2, MCHC 34.2, RDW Std Deviation 40.7, RDW Coeff of Pascual 12.6, Plt Count 266, MPV 10.9, Immature Gran % (Auto) 0.300, Neut % (Auto) 64.3, Lymph % (Auto) 27.8, [place] % (Auto) 6.3, Eos % (Auto) 0.9, Baso % (Auto) 0.4, Absolute Neuts (auto) 9.0 H, Absolute Lymphs (auto) 3.91, Nucleated RBC % 0, Sodium 133 L, Potassium 4.3, Chloride 101, Carbon Dioxide 26.0, Anion Gap 6, BUN 29 H, Creatinine 1.23, Estim Creat Clear Calc 74.55, Est GFR (MDRD) Af Amer 76, Est GFR (MDRD) Non-Af 62, BUN/Creatinine Ratio 23.6 H, Glucose 112 H, Calcium 9.5, Troponin I High Sens 5 01/13/24 22:14: Magnesium 1.9, Troponin I High Sens 5 01/14/24 02:10: Troponin I High Sens 4 01/14/24 06:23: POC Glucose 137 H 01/14/24 06:50: WBC 10.4, RBC 4.97, Hgb 14.3, Hct 44.2, MCV 88.9, MCH 28.8, MCHC 32.4 D, RDW Std Deviation 40.5, RDW Coeff of Pascual 12.4, Plt Count 222, MPV 11.0, Immature Gran % (Auto) 0.300, Neut % (Auto) 59.0, Lymph % (Auto) 31.1, [place] % (Auto) 7.8, Eos % (Auto) 1.4, Baso % (Auto) 0.4, Absolute Neuts (auto) 6.2, Absolute Lymphs (auto) 3.25, Nucleated RBC % 0, Sodium 133 L, Potassium 4.6, Chloride 103, Carbon Dioxide 24.0, Anion Gap 7, BUN 27 H, Creatinine 1.11, Estim Creat Clear Calc 82.22, Est GFR (MDRD) Af Amer 85, Est GFR (MDRD) Non-Af 70, BUN/Creatinine Ratio 24.3 H, Glucose 140 H, Calcium 9.1, Total Bilirubin 1.60 H, AST 21, ALT 24, Alkaline Phosphatase 65, Total Protein 7.4, Albumin 3.8, Globulin 3.6, Albumin/Globulin Ratio 1.1, Triglycerides 320 H, Cholesterol 198, LDL Cholesterol 100, VLDL Cholesterol 64 H, HDL Cholesterol 34 L Radiography Diagnostic Testing: Radiology Impression Chest X-Ray 01/13/24 19:49 IMPRESSION: No acute disease Electronically Signed: Jayden Vega MD at 20:43 EDT , Chest CT 01/14/24 10:55 IMPRESSION: 1. No CTA evidence of pulmonary thromboemboli, thoracic aortic aneurysm or dissection. 2. No CT evidence of pneumonia or acute chest abnormality. 3. 1.3 cm thick loculated anterior midline pericardial effusion. Electronically Signed: Elfego Hanson MD at 12:51 EDT , D/C Instructions Discharge Diet: 1800 Calorie Control Diet Weight Bearing Status: Full weight bearing Meaningful Use Info Ischemic Stroke Statin Dosing Therapy Reference: STATIN DOSE THERAPY REFERENCE: * Patients > 75 years receive moderate or high dose statin therapy. * Patients 75 years or YOUNGER should receive HIGH intensity statin dose unless contraindicated. You will be required to document reason for non-treatment if statin daily dose does not meet guidelines. HIGH DOSE STATIN THERAPY DAILY Atorvastatin > than or = to 40 mg Rosuvastatin > than or = to 20 mg Amlodipine + Atorvastatin > than or = to 2.5/40 mg Ezetimibe + Simvastatin 10/80 mg Simvastatin 80mg Discharge Plan Admission Admit Date/Time: 01/13/24 22:56 Primary Reason for Your Visit: chest pain Attending Provider: Jim Najera Primary Care Provider: Shiva Camargo Consulting Providers: Coby Fraser Discharge Orders/Prescriptions Prescriptions: Continued metformin 500 MG tablet 1,000 mg PO BIDCM Patient Comments: BLOOD SUGAR albuterol sulfate [Ventolin HFA] 1 INHALER inhaler 1 puff inhalation Q4H PRN PRN (Reason: Shortness Of Breath) Patient Comments: BREATHING glipizide 10 mg tablet extended release 24hr 20 mg PO DAILY lisinopril 10 mg tablet 20 mg PO DAILY naproxen [EC-Naprosyn] 500 mg tablet,delayed release (DR/EC) 500 mg PO DAILY Referrals / Follow Up: Shiva Camargo MD [Primary Care Provider] - Disposition Disposition (needs filled in before D/C Order can be placed): Home, Self Care
[2024-01-14 23:41] LABS: Bedside Glucose 199 mg/dL (74-106)
--- NOTE | 2024-01-16 19:46 | STRESSREP ---
Stress Test Report Pharmacologic myocardial perfusion stress test. 68-year-old man with a history of chest pain Resting EKG demonstrates sinus rhythm with a rate of 70 bpm. Resting blood pressure is 144/84 mmHg. 0.4 mg of regadenoson was infused per usual protocol followed by rapid intravenous saline flush injection. Continuous EKG monitoring was performed. The maximum heart rate was 91 bpm which was 59% of max impacted heart rate the maximum workload was 1 metabolic equivalent. At rest there were no ST or T wave changes noted to suggest ischemia and at peak infusion nonspecific ST changes were noted which did not meet the criteria for ischemia. No clinical angina is noted. The final blood pressure was 144/86 mmHg. Myocardial perfusion protocol. 13.4 mCi of technetium 99m sestamibi was injected at rest. 0.4 mg of regadenoson was infused per usual protocol. At peak infusion 41.0 mCi of technetium 99m sestamibi was injected stress images were obtained stress and rest images were reconstructed and compared in the short axis vertical long and horizontal long axis. Gated images were also obtained. Perfusion SPECT analysis: Review of the stress images demonstrate normal uptake of tracer noted in all areas of the myocardium. The resting images similar demonstrated normal uptake of tracer noted in all areas of the myocardium. No areas of reversibility are noted to suggest ischemia and no previous infarct is noted. Gated SPECT analysis: The gated ejection fraction is 64%. Conclusion: Normal pharmacologic myocardial perfusion stress test. Preserved ejection fraction.
== END 2024-01-14 14:49 | disposition home or self-care (01) ==
LOC: ED 23:02 → PCU 23:04
PROVIDERS: Admitting Provider Family Medicine; Emergency Provider Emergency Medicine; PCP Internal Medicine; Visit Provider Internal Medicine
DX: R07.89 Other chest pain (principal); E11.9 Type 2 diabetes mellitus without complications; Z79.84 Long term (current) use of oral hypoglycemic drugs; I25.10 Atherosclerotic heart disease of native coronary artery without angina pectoris; J45.909 Unspecified asthma, uncomplicated; E66.9 Obesity, unspecified; Z68.35 Body mass index [BMI] 35.0-35.9, adult; E78.5 Hyperlipidemia, unspecified; I10 Essential (primary) hypertension; K21.9 Gastro-esophageal reflux disease without esophagitis; Z87.891 Personal history of nicotine dependence; I95.1 Orthostatic hypotension; Z23 Encounter for immunization; Z79.899 Other long term (current) drug therapy; R42 Dizziness and giddiness; R06.09 Other forms of dyspnea; I31.39 Other pericardial effusion (noninflammatory)
CPT/HCPCS: 36415; 71045; 71270; 78452; 80048; 80053; 80061; 82962; 83735; 84484; 85025; 90662; 93005; 93017; 99221; 99285; A9500; G0008; Q9967; A4216; G0378; J2785